=== PATIENT | male | born 1960 | race Caucasian/White ===

== ENCOUNTER 2025-06-12 08:55 | Day surgery (SDC) | payer MEDICARE, BC ==
[2025-06-05 12:30] VITALS: BMI 27.2
[2025-06-12] MEDS ORDERED: Acetaminophen 500 MG TAB ONE (11:22)
[2025-06-12] MEDS ORDERED: Ketorolac Tromethamine 30 MG (1 mL) VIAL ONE (11:22)
[2025-06-12] MEDS ORDERED: CEFAZOLIN 2 GM VIAL ONE (11:32)
[2025-06-12] MEDS ORDERED: Bupivacaine/Epinephrine 0.25% 30 ML VIAL ONE (11:32)
[2025-06-12 12:08] LABS: #Basophils 0.11 10x3/uL (0.0-0.2); #Eosinophils 0.37 10x3/uL (0.0-0.5); #Monocytes 0.83 10x3/uL (0.0-1.1); #Neutrophils 6.76 10x3/uL (1.5-8.4); %Basophils 1.1 % (0.0-2.0); %Eosinophils 3.8 % (0.0-6.0); %Lymphocytes 17.5 % (18.0-47.0); %Monocytes 8.5 % (0.0-10.0); %Neutrophils 68.8 % (40.0-75.0); Hematocrit 45.8 % (38.8-50.0); Hemoglobin 14.7 g/dL (13.5-17.5); Mean Corpuscular Hemoglobin 28.8 pg (27.0-33.0); Mean Corpuscular Volume 89.6 fL (81.2-95.1); Platelet Count 267 10x3/uL (150-450); Red Blood Cell (RBC) Count 5.11 10x6/uL (4.32-5.72); White Blood Cell (WBC) Count 9.82 10x3/uL (3.5-10.5)
[2025-06-12] MEDS ORDERED: Ondansetron PF 4 MG/2 ML Vial ONE (12:22)
[2025-06-12] MEDS ORDERED: PROPOFOL 40 ML ONE (12:22)
[2025-06-12] MEDS ORDERED: Lidocaine 1% PF 5 ML VIAL ONE (12:22)
[2025-06-12 12:29] LABS: Anion Gap 11 mmol/L (10-20); BUN (Urea Nitrogen) 48 mg/dL (8.4-25.7); Calc. Creatinine Clearance 58 mL/min (70-130); Calcium 9.0 mg/dL (7.8-10.44); Carbon Dioxide 22 mmol/L (23-31); Chloride 111 mmol/L (98-107); Glucose 135 mg/dL (80-115); Potassium 4.7 mmol/L (3.5-5.1); Sodium 139 mmol/L (136-145)
[2025-06-12] MEDS ORDERED: Etomidate 40 MG (20 mL) VIAL ONE (12:31)
[2025-06-12] MEDS ORDERED: Sevoflurane 250 ML INH ANEST BOTTLE ONE (12:33)
[2025-06-12] MEDS ORDERED: Glycopyrrolate 0.2 MG/ML 5 ML SYRINGE ONE (13:22)
== END 2025-06-12 15:05 | disposition home or self-care (01) ==
LOC: CSHSDC 08:55
PROVIDERS: ATTEND Specialist
PROC: 0WUF0JZ Supplement Abdominal Wall with Synthetic Substitute, Open Approach (ICD-10-PCS; principal; 2025-06-12)
DX: K42.9 Umbilical hernia without obstruction or gangrene (principal); K43.9 Ventral hernia without obstruction or gangrene; Z88.5 Allergy status to narcotic agent
CPT/HCPCS: 49591; 80048; 82962; 85025; A6258; C1781; J1100; J1885; J2405; J2704; J3010; 36415; 36416